=== PATIENT | female | born 1930 | race Caucasian/White ===

== ENCOUNTER 2018-02-16 19:45 | Inpatient (IN) | payer MEDICARE ==
[~2018-02-16] VITALS: Ht 165.1 cm; Wt 71.9 kg
[2018-02-16] MEDS ORDERED: LORazepam 2 MG/ML VIAL IV PRN (21:15)
[2018-02-16] MEDS ORDERED: IV 1/2 NORMAL SALINE 1,000 ML IV PRN (21:15)
[2018-02-16] MEDS ORDERED: fentaNYL 12MCG/HR 1 PATCH PATCH TD SCH (22:00)
[2018-02-16 22:01] VITALS: BP 120/51
[2018-02-16 22:11] LABS: BASO % 1 % (0-3); EOS # 0.1 x10^3/uL (0.0-0.7); EOS % 1 % (0-3); HEMATOCRIT 29.8 % (36.0-47.0); HEMOGLOBIN 9.8 g/dL (12.0-15.5); LYMPH % 15 % (24-48); MEAN CORPUSCULAR HEMOGLOBIN 28 pg (25-35); MEAN CORPUSCULAR HGB CONC 33 g/dL (31-37); MEAN CORPUSCULAR VOLUME 86 fL (79-100); MONO # 0.5 x10^3/uL (0.0-1.1); MONO % 7 % (0-9); NEUT # 5.3 x10^3uL (1.8-7.7); NEUT % 77 % (31-73); PLATELET COUNT 146 x10^3/uL (140-400); RED BLOOD COUNT 3.45 x10^6/uL (3.50-5.40); RED CELL DISTRIBUTION WIDTH 15.1 % (11.5-14.5); WHITE BLOOD COUNT 6.9 x10^3/uL (4.0-11.0)
[2018-02-16 22:20] LABS: ALBUMIN/GLOBULIN RATIO 0.9 (1.0-1.7); CALCIUM 8.8 mg/dL (8.5-10.1); CREATININE 1.4 mg/dL (0.6-1.0); GFR 35.7; TOTAL BILIRUBIN 0.1 mg/dL (0.2-1.0); TOTAL PROTEIN 6.5 g/dL (6.4-8.2)
[2018-02-16 22:26] LABS: POTASSIUM 6.1 mmol/L (3.5-5.1)
[2018-02-16] MEDS ORDERED: ONDANSETRON PF 4 MG/2 ML VIAL. IV PRN (22:30)
[2018-02-16] MEDS ORDERED: INSULIN REGULAR 100 UNIT/ML 3ML VIAL. IV ONE (23:00)
[2018-02-16] MEDS ORDERED: DEXTROSE 50% 25 GM / 50ML DISP.SYRIN. IV ONE (23:00)
--- NOTE | 2018-02-16 23:14 | RAD ---
INDICATION: Fall, possibly hit head COMPARISON: None. TECHNIQUE: Axial CT images obtained through the head without intravenous contrast. One or more of the following individualized dose reduction techniques were utilized for this examination: 1. Automated exposure control; 2. Adjustment of the mA and/or kV according to patient size; 3. Use of iterative reconstruction technique. FINDINGS: No intracranial hemorrhage. No midline shift. Basal cisterns patents. Ventricles and sulci are globally prominent. No acute osseous abnormality. Orbits and paranasal sinuses unremarkable. Scattered foci of low attenuation within the white matter. IMPRESSION: 1. No acute intracranial hemorrhage. 2. Scattered regions of low attenuation within the white matter. Non-specific in nature but frequently secondary to small vessel ischemic disease. 3. Prominence of ventricles and sulci which is frequently secondary to age related volume loss. Electronically signed by: Obie Ibrahim MD (02/16/2018 11:11 PM) [facility]
[2018-02-16] MEDS: IV DEXTROSE 5 %-0.45 % NACL 1,000 ML IV SCH (23:22)
[2018-02-17 06:12] VITALS: BP 142/59
[2018-02-17] MEDS ORDERED: SUCR1TAB PO (07:16)
[2018-02-17] MEDS ORDERED: CETI10TA22 PO (07:16)
[2018-02-17] MEDS ORDERED: LISI10TA2 PO (07:16)
[2018-02-17] MEDS ORDERED: PREG100C PO (07:16)
[2018-02-17] MEDS ORDERED: GLIP5TAB10 PO (07:16)
[2018-02-17] MEDS ORDERED: PANT40TA5 PO (07:16)
[2018-02-17] MEDS ORDERED: DONE5TAB7 PO (07:16)
[2018-02-17] MEDS: LIDOCAINE (700MG/PATCH) PATCH. TD SCH ×2 (10:00→13:58)
[2018-02-17 10:01] LABS: ALBUMIN/GLOBULIN RATIO 0.8 (1.0-1.7); CALCIUM 9.1 mg/dL (8.5-10.1); CREATININE 1.2 mg/dL (0.6-1.0); GFR 42.6; POTASSIUM 4.7 mmol/L (3.5-5.1); TOTAL BILIRUBIN 0.2 mg/dL (0.2-1.0); TOTAL PROTEIN 6.7 g/dL (6.4-8.2)
[2018-02-17] MEDS: ACETAMINOPHEN 500 MG TABLET PO PRN ×3 (10:02→23:18)
[2018-02-17 10:53] VITALS: BP 160/62
[2018-02-17] MEDS: IV DEXTROSE 5 %-0.45 % NACL 1,000 ML IV SCH (12:20)
[2018-02-17 14:05] LABS: BILIRUBIN,URINE NEG (NEG); CLARITY,URINE CLEAR; COLOR,URINE YELLOW; GLUCOSE,URINE 100 mg/dL (NEG)
[2018-02-17 14:06] LABS: BACTERIA,URINE MOD /HPF (0-FEW); NITRITE,URINE NEG (NEG); RBC,URINE 0 /HPF (0-2); SQUAMOUS EPITHELIAL CELL,UR FEW /LPF; UROBILINOGEN,URINE 0.2 mg/dL (0.2 mg/dL)
[2018-02-17 14:26] VITALS: BP 145/70
--- NOTE | 2018-02-17 17:09 | PN ---
DATE: 02/17/2018 SUBJECTIVE: The patient was admitted yesterday, direct admit for severe pain. The patient although her scans do not show up here as an inpatient. Outpatient, she was performed and noted 3-4 rib fractures. She has severe pain. Her potassium was elevated at 6.1 and blood sugar elevated. Otherwise, we will continue to monitor that repeatedly. Otherwise, the patient is alert and oriented, baseline for her. She has some memory deficits. OBJECTIVE: VITAL SIGNS: Include blood pressure 160/92, respirations 16, pulse 70, afebrile. GENERAL: The patient is alert and oriented x 3. Speech fluent, spontaneous, appropriate. Cranial nerves 2-12 are grossly intact. The patient is otherwise neurologically baseline. There is exquisite tenderness to the right ribs. She did have tenderness to her back, Lidoderm patch placed on that. The patient otherwise continued to be monitored carefully and make further evaluation. Her potassium has come down from 6.1 to 4.7. IMPRESSION: Therefore, multiple rib fractures secondary to fall out of the bed, hyperkalemia, type 2 diabetes, chronic kidney disease 3, moderate protein malnutrition, anemia of chronic disease. UA still pending. PLAN: Continue to monitor the patient and accordingly make further evaluation on her per those results. RICHA BA MD DR: ONEIDA/wayne JOB#: [id number] / [id number]
[2018-02-17 19:09] VITALS: BP 153/51
[2018-02-17] MEDS: PATCH REMOVAL. MC SCH (19:34)
[2018-02-17 22:23] VITALS: BP 182/63
[2018-02-18 05:09] VITALS: BP 120/82
[2018-02-18] MEDS ORDERED: PANTOPRAZOLE 40 MG TABLET. PO SCH (07:30)
[2018-02-18] MEDS: glipiZIDE 5 MG TABLET PO SCH ×2 (07:47→16:58)
[2018-02-18] MEDS: SUCRALFATE 1 GM TABLET. PO SCH ×2 (07:47→16:58)
[2018-02-18] MEDS: PREGABALIN 50 MG CAPSULE PO SCH ×2 (08:27→20:32)
[2018-02-18] MEDS ORDERED: LISINOPRIL 10 MG TABLET PO SCH (09:00)
[2018-02-18] MEDS ORDERED: CETIRIZINE HCL 10 MG TABLET PO SCH (09:00)
[2018-02-18] MEDS ORDERED: DONEPEZIL HCL 5 MG TABLET. PO SCH (09:00)
[2018-02-18] MEDS ORDERED: PREGABALIN 100 MG CAPSULE PO SCH (09:00)
[2018-02-18] MEDS ORDERED: ONDANSETRON ODT 4 MG TAB.RAPDIS PO PRN (10:30)
[2018-02-18] MEDS ORDERED: HYDROcodone/APAP 5/325MG 1 TAB TABLET PO PRN (11:00)
[2018-02-18 11:23] VITALS: BP 149/62
[2018-02-18 15:25] VITALS: BP 107/78
[2018-02-18 20:02] VITALS: BP 159/63
[2018-02-18] MEDS: ACETAMINOPHEN 500 MG TABLET PO PRN (20:32)
[2018-02-18] MEDS: PATCH REMOVAL. MC SCH (20:33)
--- NOTE | 2018-02-19 09:53 | DS ---
DATE OF DISCHARGE: 02/19/2018 HOSPITAL COURSE: An 87-year-old female came in, had been falling quite a few times at home. Actually last time was falling out of bed and she fractured several ribs and her right rib cage. She had problems with that and as a result of the excruciating pain required IV pain medication as well as chronic patch type pain medication. The patient still needs rehabilitation. The patient was discharged. The patient has chronic anemia 9.8 and 30. She is also diabetic. CT scan of the head was unremarkable. Chronic kidney disease. IMPRESSION: Fractured ribs for right side secondary to fall at home; anemia of chronic disease; mild dementia; type 2 diabetes; CKD 3; moderate protein malnutrition; hyperkalemia, resolved. See EMRAD. Transferred to the skilled unit. PLAN: As above. RICHA BA MD DR: ONEIDA/wayne JOB#: [id number] / [id number]
--- NOTE | 2018-02-19 22:12 | PN ---
DATE: 02/18/2018 SUBJECTIVE: Frequent falls. The patient fractured multiple ribs on the right side. She is still having excruciating pain, taking an IV and analgesics. The patient otherwise seems to be resting fairly comfortably when she gets the IV pain medications. She also has a patch on as well for the pain. PHYSICAL EXAMINATION: VITAL SIGNS: Blood pressure 110/80, respiratory rate 20, pulse 70, afebrile. GENERAL: The patient is alert and oriented, complaining of pain about 8-9/10. ____ along the right ribcage where the fractures are. LUNGS: Otherwise lungs are diminished, poor movement of air. CARDIOVASCULAR: Regular sinus rhythm. ABDOMEN: Soft, nontender. EXTREMITIES: Basically stable there. We will go ahead and continue to monitor patient on her pain and consider rehabilitation. IMPRESSION: Fall out of bed with the problem of multiple fractures, closed ribs on the right thoracic cage. RICHA BA MD DR: ONEIDA/wayne JOB#: [id number] / [id number]
== END 2018-02-19 01:37 | DRG 184 ==
LOC: 1 SOUTH 19:45
PROVIDERS: ADMIT Family Medicine; ATTEND Family Medicine
DX: S22.41XA Multiple fractures of ribs, right side, initial encounter for closed fracture (principal); E44.0 Moderate protein-calorie malnutrition; E11.22 Type 2 diabetes mellitus with diabetic chronic kidney disease; E87.5 Hyperkalemia; E78.5 Hyperlipidemia, unspecified; D63.8 Anemia in other chronic diseases classified elsewhere; F03.90 Unspecified dementia, unspecified severity, without behavioral disturbance, psychotic disturbance, mood disturbance, and anxiety; S10.93XA Contusion of unspecified part of neck, initial encounter; N18.3 Chronic kidney disease, stage 3 (moderate); J44.9 Chronic obstructive pulmonary disease, unspecified; I25.10 Atherosclerotic heart disease of native coronary artery without angina pectoris; S30.0XXA Contusion of lower back and pelvis, initial encounter; S20.211A Contusion of right front wall of thorax, initial encounter; I12.9 Hypertensive chronic kidney disease with stage 1 through stage 4 chronic kidney disease, or unspecified chronic kidney disease; W06.XXXA Fall from bed, initial encounter; Y92.092 Bedroom in other non-institutional residence as the place of occurrence of the external cause; Z90.11 Acquired absence of right breast and nipple; Z95.1 Presence of aortocoronary bypass graft; Y93.89 Activity, other specified; Y99.8 Other external cause status; Z88.5 Allergy status to narcotic agent
CPT/HCPCS: 36415; 70450; 80053; 81001; 82947; 83540; 83550; 85025; 87086; J1815; J2060; J3010; Q0162